=== PATIENT | female | born 2000 | race Caucasian/White ===

== ENCOUNTER 2023-01-06 10:08 | Emergency (ER) | payer OTHER, SELFPAY ==
[2023-01-06 10:14] VITALS: BP 117/74; PULSE 67; RESP 18; TEMP 36.8; O2SAT 98; BMI 19.7
--- NOTE | 2023-01-06 10:22 | ED.GENADUL1 ---
HPI - General Adult General Chief complaint: Nausea/Vomiting/Diarrhea Stated complaint: ABDOMINAL PAIN Time Seen by Provider: 01/06/23 10:22 Source: patient Source information: patient Mode of arrival: walk-in Limitations: no limitations History of Present Illness HPI narrative: Patient presents to emergency department complaining of diarrhea. She states she had diarrhea watery for the last 3 weeks. She has some mild abdominal cramping. She denies any fever, chills. She states she has nausea intermittently but has not been vomiting. She feels weak. Patient denies any previous gastrointestinal problems. She denies eating anything that could have gotten her sick. She never had any problems like this before. She states today she was passing stool and it looked like there was something sharp like glass. She denies any rectal trauma. She denies anyrectal foreign body. She denies any melena, or hematochezia. She denies any vaginal bleeding, or discharge. Denies any flank pain, hematuria, dysuria. She denies any fever, chills, or cough.She states that she has at least 3-4 runny bowel movements every morning. The rest of the day she feels better and starts having the cramping at night and then the diarrhea in the morning. She is unable to provide us with a sample at this time. Related Data Allergies Allergy/AdvReac Type Severity Reaction Status Date / Time No Known Drug Allergies Allergy Verified 01/06/23 10:17 Review of Systems ROS Status of ROS 10 or more systems reviewed and unremarkable except as noted in history and below [facility] Social History Smoking status: Never smoker Exam Narrative Exam Narrative: Nurses notes and vital signs reviewed and patient is not hypoxic. General: Nontoxic, Well-appearing and in no apparent distress. Skin: Warm, dry, no pallor noted. No Rash Head: Normocephalic, atraumatic. Neck: Supple, non-tender. Eye: Pupils are equal, round and EOMI. No scleral icterus. Ears, Nose, Mouth, and Throat: TM clear, no posterior oropharynx erythema or nasal mucosal hypertrophy, uvula is mid-line Oral mucosa is moist Cardiovascular: Regular Rate and Rhythm without murmur, gallop or rub. Respiratory: No accessory muscle use or respiratory distress. Lungs are clear to auscultation, no wheezing, rales or rhonchi Chest Wall: no tenderness Back: No midline thoracic or lumbar vertebral tenderness. No CVA tenderness Musculoskeletal: normal ROM, no calf or popliteal tenderness, no lower extremity edema/swelling GI: Abdomen is soft, non-distended. Normal bowel sounds. No masses appreciated. No tenderness to palpation. No rebound, guarding, or rigidity noted. Rectal: No erythema, fissures, or hemorrhage noted. Small yellow hard stool sent for Hemoccult. Neurological: A&O x4. No cranial nerve dysfunction observed. No truncal ataxia. Moves all extremities. Sensation intact. Psychiatric: Cooperative and interactive. Normal mood and affect. Constitutional Vital Signs, click to edit/add: Last Vital Signs Temp 98.2 F 01/06/23 10:14 Pulse 57 L 01/06/23 11:36 Resp 16 01/06/23 11:36 BP 96/64 01/06/23 11:36 Pulse Ox 100 01/06/23 11:36 O2 Del Method Room Air 01/06/23 10:14 Course Vital Signs Vital signs: Vital Signs Temperature 98.2 F 01/06/23 10:14 Pulse Rate 67 01/06/23 10:14 Respiratory Rate 18 01/06/23 10:14 Blood Pressure 117/74 01/06/23 10:14 Pulse Oximetry 98 01/06/23 10:14 Oxygen Delivery Method Room Air 01/06/23 10:14 Temperature 98.2 F 01/06/23 10:14 Pulse Rate 57 L 01/06/23 11:36 Respiratory Rate 16 01/06/23 11:36 Blood Pressure 96/64 01/06/23 11:36 Pulse Oximetry 100 01/06/23 11:36 Oxygen Delivery Method Room Air 01/06/23 10:14 Medical Decision Making MDM Narrative Medical decision making narrative: lab Studies done. pt given IV fluids. X-rays done. all results discussed with patient.The patient is nontoxic, abdomen is benign and nonsurgical. Patient was unable to provide a stool sample. He is given a slip for an outpatient stool sample. At this time the patient is without objective evidence of an acute process requiring hospitalization or inpatient management. The patient has remained hemodynamically stable. No additional indication for emergent studies at this time. I answered all questions. Discussed discharge instructions including standard anticipatory guidance and what should prompt a return to the emergency department, including if they get worse are not getting better or develops any new or concerning symptoms. I've given them specific time frame in which to follow-up, and who to follow-up with. The patient demonstrates understanding. Patient is nontoxic and stable for discharge with outpatient follow-up. This note was created with the assistance of a speech recognition program. Although the intention is to generate documents that actually reflects the content of the visit, no guarantees can be provided that every mistake has been identified and corrected by editing. Lab Data Lab results reviewed: Yes I reviewed the patient's lab results Labs: Lab Results 01/06/23 Range/Units 10:50 WBC 5.9 (4.0-11.0) 10^3/uL RBC 4.64 (4.20-5.40) 10^6/uL Hgb 13.8 (12.0-16.0) g/dL Hct 41.0 (36.0-48.0) % MCV 88.4 (81.0-99.0) fL MCH 29.7 (26.7-34.0) pg MCHC 33.7 (29.9-35.2) g/dL RDW 12.7 (11.0-15.0) % Plt Count 244 (150-450) 10^3/uL MPV 10.5 (9.5-13.5) fL Neut % (Auto) 62.7 (43.0-75.0) % Lymph % (Auto) 26.9 (20.5-60.0) % Churchill % (Auto) 8.2 (1.7-12.0) % Eos % (Auto) 1.3 (0.9-7.0) % Baso % (Auto) 0.7 (0.2-2.0) % Neut # (Auto) 3.7 (1.4-6.5) 10^3/uL Lymph # (Auto) 1.6 (1.2-3.8) 10^3/uL Churchill # (Auto) 0.5 (0.3-0.8) 10^3/uL Eos # (Auto) 0.1 (0.0-0.7) 10^3/uL Baso # (Auto) 0.0 (0.0-0.1) 10^3/uL Abs Immat Gran (auto) 0.01 (0.00-0.03) 10^3/uL Imm/Tot Granulo (auto) 0.2 (0.0-0.5) % Sodium 137 (136-145) mmol/L Potassium 4.2 (3.5-5.1) mmol/L Chloride 105 (98-107) mmol/L Carbon Dioxide 26.2 (21.0-32.0) mmol/L Anion Gap 10.0 BUN 13.0 (7.0-18.0) mg/dL Creatinine 0.68 (0.55-1.02) mg/dL Est GFR ( Amer) >60 (>=60) Est GFR (Non-Af Amer) >60 (>=60) BUN/Creatinine Ratio 19.1 Glucose 93 (74-106) mg/dL Calcium 8.9 (8.5-10.1) mg/dL Total Bilirubin 0.5 (0.2-1.0) mg/dL AST 14 L (15-37) U/L ALT 12 L (14-59) U/L Alkaline Phosphatase 69 (46-116) U/L Total Protein 7.5 (6.4-8.2) g/dL Albumin 4.1 (3.4-5.0) g/dL Globulin 3.4 g/dL Albumin/Globulin Ratio 1.2 Lipase 39.0 L (73.0-393.0) U/L Discharge Plan Discharge Chief Complaint: Nausea/Vomiting/Diarrhea Clinical Impression: Diarrhea, Dehydration Patient Disposition: Home, Self-Care Time of Disposition Decision: 12:48 Condition: Good Mode of Transportation: Private Vehicle Instructions: Acute Diarrhea (ED) Additional Instructions: Drink plenty of fluids. Get a stool sample done as discussed. Follow up with her primary care doctor in the morning. Return to the emergency department with a possible concerns as discussed. Stand Alone Forms: Portal Instructions Referrals: Physician,Non-Staff, [Primary Care Provider] - 1 week (vineet hardin) Discharge Date/Time: 01/06/23 13:30
[2023-01-06] MEDS: 0.9 % SODIUM CHLORIDE 1,000 ML 100 ML IV (10:53)
[2023-01-06 11:15] LABS: Alanine Aminotransferase 12 U/L (14-59); Albumin Level 4.1 g/dL (3.4-5.0); Alkaline Phosphatase 69 U/L (46-116); Aspartate Amino Transferase 14 U/L (15-37); BUN Creatinine Ratio 19.1; Basophils Percent Auto 0.7 % (0.2-2.0); Bilirubin Total 0.5 mg/dL (0.2-1.0); Calcium 8.9 mg/dL (8.5-10.1); Carbon Dioxide 26.2 mmol/L (21.0-32.0); Chloride 105 mmol/L (98-107); Eosinophils Absolute Auto 0.1 10^3/uL (0.0-0.7); Eosinophils Percent Auto 1.3 % (0.9-7.0); Estimated GFR (African America >60 (>=60); Estimated GFR (Non-African Ame >60 (>=60); Globulin 3.4 g/dL; Glucose 93 mg/dL (74-106); Hemoglobin 13.8 g/dL (12.0-16.0); Immature Granulocytes Abs Auto 0.01 10^3/uL (0.00-0.03); Immature Granulocytes Pct Auto 0.2 % (0.0-0.5); Lymphocytes Absolute Auto 1.6 10^3/uL (1.2-3.8); Lymphocytes Percent Auto 26.9 % (20.5-60.0); Mean Corpuscular HGB Conc 33.7 g/dL (29.9-35.2); Mean Corpuscular Hemoglobin 29.7 pg (26.7-34.0); Mean Corpuscular Volume 88.4 fL (81.0-99.0); Mean Platelet Volume 10.5 fL (9.5-13.5); Monocytes Absolute Auto 0.5 10^3/uL (0.3-0.8); Monocytes Percent Auto 8.2 % (1.7-12.0); Neutrophils Absolute Auto 3.7 10^3/uL (1.4-6.5); Neutrophils Percent Auto 62.7 % (43.0-75.0); Platelet Count 244 10^3/uL (150-450); Potassium 4.2 mmol/L (3.5-5.1); Red Blood Count 4.64 10^6/uL (4.20-5.40); Red Cell Distribution Width 12.7 % (11.0-15.0); Sodium 137 mmol/L (136-145); Total Protein 7.5 g/dL (6.4-8.2); White Blood Count 5.9 10^3/uL (4.0-11.0)
[2023-01-06 11:16] LABS: Albumin Globulin Ratio 1.2
[2023-01-06 11:36] VITALS: BP 96/64; PULSE 57; RESP 16; O2SAT 100
[2023-01-06 11:49] LABS: HCG Qualitative Urine* NEGATIVE (NEGATIVE)
--- NOTE | 2023-01-06 12:20 | XR_ITS ---
[facility] [id number] Patient Name: DREW GILBERT MRN: [id number] date: 2000 Sex: F Assigned Patient Location: ER Current Patient Location: ED.MAIN Accession/Order Number: [id number] Exam Date: 01/06/2023 12:20 Report Date: 01/06/2023 19:38 At the request of: FOREST MELENDEZ Procedure: XR acute abdomen series EXAMINATION: XR acute abdomen series HISTORY: diarreha, abd pain COMPARISON: No relevant comparison available. FINDINGS: BOWEL GAS PATTERN: Non-obstructed. FREE AIR: None. CALCIFICATIONS: None significant. BONES: No fracture or visible bone lesion. OTHER: Negative. XR/XR acute abdomen series IMPRESSION: 1. No acute cardiopulmonary process. 2. Normal bowel gas pattern. No suspicious findings to account for patient's symptoms. Preliminary findings provided to emergency department at time of imaging. Electronically authenticated by: LEANNE OHARA Date: 01/06/2023 19:38
[2023-01-06 13:28] VITALS: BP 90/60; PULSE 69; RESP 16; O2SAT 99
== END 2023-01-06 13:30 | disposition home or self-care (01) ==
PROVIDERS: Emergency Provider Emergency Medicine
DX: R19.7 Diarrhea, unspecified (principal); E86.0 Dehydration
CPT/HCPCS: 36415; 74022; 80053; 83690; 84703; 85025; 87507; 96360; 96361; 99285